=== PATIENT | male | born 1990 | race Hispanic/Latino ===

== ENCOUNTER 2024-04-11 17:08 | Emergency (ER) | payer OTHER ==
[~2024-04-11] VITALS: Ht 175.3 cm; Wt 72.6 kg
[2024-04-11] MEDS ORDERED: KETO15CR2 TP (17:55)
--- NOTE | 2024-04-11 17:56 | ERN ---
General Chief Complaint: Allergic Reaction Stated Complaint: RASH Time Seen by MD: 17:10 Time Seen by Midlevel: 17:10 Source: patient History of Present Illness Initial Comments Patient is a 34-year-old male with no significant past medical history presents to the ER for a facial rash that has been ongoing for the last couple of days. Rash is slightly itchy but no other symptoms reported at this time. Allergies: Coded Allergies: No Known Drug Allergies (Unverified Allergy, Unknown, 04/11/24) Home Meds Active Scripts Ketoconazole (Ketoconazole) 2 % Cream.gm., 1 APPL TP BID for 7 Days, #30 GM 0 Refills apply to affected area(s) Prov:JOLIE ORDAZ 04/11/24 Past Medical History Past Medical History: No Pertinent History Past Surgical History: None ROS Dictation CONSTITUTIONAL: Negative except for HPI HEAD/FACE: Negative except for HPI EENT: Negative except for HPI RESPIRATORY: Negative except for HPI GASTROINTESTINAL/ABDOMINAL: Negative except for HPI GENITOURINARY: Negative except for HPI MUSCULOSKELETAL: Negative except for HPI INTEGUMENTARY: Negative except for HPI NEUROLOGICAL/PSYCH: Negative except for HPI HEMATOLOGIC/LYMPHATIC: Negative except for HPI All Systems Negative, Except as noted above. 13 point review of systems assessed and all negative except for above. Physical Exam Physical Exam Dictation Vital Signs reviewed General Appearance: Alert, oriented x 3, no acute distress, well developed, nourished. Head and Face: non-traumatic. Eyes: PERRL, pink conjunctivas, eyelid no trauma, anterior chamber with arcus senilis. Ears: Pinnas intact and no signs of trauma or erythema ear canals clear and no discharge TM no erythema Nose: No discharge, no bleeding. Oropharynx: Mouth normal, tongue pink, pharynx clear,no erythema, tonsils no exudates, no abscesses noted, mucous membrane moist Neck: Supple, non-tender, no thyromegaly, no masses, no JVD, no bruits Breast:Deferred Chest:No tenderness, no crepitus, no paradoxical movement, no retractions Lungs:Clear, well-ventilated, symmetric, no rales, no wheezing, no rhonchi, no stridor, good breath sounds bilaterally Heart: Regular rate, regular rhythm, no murmur, no gallops Vascular: no peripheral edema, Abdomen: Soft, positive bowel sounds, nondistended, no guarding, nontender, no rebound, no masses no hepatomegaly, no splenomegaly, no Page's sign, no hernias. Rectal: Deferred Genital: Deferred Neurological: Normal speech, motor function intact, sensory function intact Musculoskeletal: Neck nontender, full range of motion, back nontender, full range of motion, Extremities: nontender, full range of motion Skin: Color pink, dry, no turgor, no rash, no lacerations, no abrasions, no contusions. Lymphatic: Deferred MDM MDM: Patient is a 34-year-old male with no significant past medical history presents to the ER for a facial rash that has been ongoing for the last couple of days. Rash is slightly itchy but no other symptoms reported at this time. On physical examination there is a greasy yellow rash to the bilateral cheeks and forehead consistent with seborrheic dermatitis. Patient will be discharged home with a prescription for ketoconazole. Patient is comfortable with this plan and all questions have been answered Differential diagnosis: Rash, allergic reaction, seborrheic dermatitis There are no social concerns with this patient. Prescription drug management Prescriptions will include: Ketoconazole Medical management and examination interpretation discussions were had by me with other qualified healthcare professionals as indicated for the patient's care. ED Course Vital Signs Date Time Temp Pulse Resp B/P (MAP) Pulse Ox O2 Delivery O2 Flow Rate FiO2 04/11/24 18:14 98.2 78 18 132/78 98 Room Air* 0 21 04/11/24 17:09 98.8 88 20 143/100 99 Room Air 0 DX & DISP Disposition: Discharge Departure Impression: Primary Impression: Seborrheic dermatitis Condition: Stable Scripts Ketoconazole (Ketoconazole) 2 % Cream.gm. 1 APPL TP BID for 7 Days, #30 GM 0 Refills apply to affected area(s) Prov: JOLIE ORDAZ 04/11/24 Additional Instructions: Your physical examination is consistent with seborrheic dermatitis. I will give you a prescription for ketoconazole for outpatient evaluation. Follow up with your PCP in 2-3 days for repeat evaluation. Time of Disposition: 17:54 I have reviewed the case, and I agree with, Diagnosis and Plan I performed the substantive portion of the visit. I have reviewed and personally made and approve the management plan that is documented in the note by myself or the [facility]. I acknowledge for responsibility for the patient's management plan. JOLIE ORDAZ Apr 11, 2024 17:56
[2024-04-11 18:14] VITALS: BP 132/78; PULSE 78; RESP 18; TEMP 98.2; O2SAT 98
== END 2024-04-11 18:24 | disposition home or self-care (01) ==
LOC: EDH 17:08
DX: L21.9 Seborrheic dermatitis, unspecified (principal); Z79.899 Other long term (current) drug therapy
CPT/HCPCS: 99283